=== PATIENT | female | born 1980 | race Two or more races ===

== ENCOUNTER 2024-01-18 19:41 | Emergency (ER) | payer OTHER, SELFPAY ==
[2024-01-18 19:48] VITALS: BP 148/99; PULSE 98; RESP 18; TEMP 37; O2SAT 99; BMI 32.4
--- NOTE | 2024-01-18 19:53 | ED_ITS ---
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 This occurred proximally 30-60 minutes prior to coming to the emergency department. At the time my evaluation, the patient is very upset and is crying. She states that she was told that she had slurred speech and was having difficulty walking. She attributes her slurred speech to the fact that she had all of her lower teeth removed proximally 1.5 weeks prior and is waiting for her gums to heal before she can get dentures. She also states that [place] is her 2nd language and she believes that people were having difficulty understanding her. She states that when she was confronted she became very anxious and this made things worse. She states that she is used to working nights and that during her orientation she has been working days. She states this is her 1st shift where she was going to work the [employer]. She states that this morning at 05:00 she did take her Ambien and NyQuil which she uses for sleep. She denies using any alcohol or other drugs prior to coming to work this evening. 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 She states that this morning at 05:00 she did take her Ambien and NyQuil which she uses for sleep. She denies using any alcohol or other drugs prior to coming to work this evening. The patient states that she takes the following medications: Ambien, Chantix, Tylenol, omeprazole, Adderall, NyQuil Related Data Allergies Allergy/AdvReac Type Severity Reaction Status Date / Time No Known Allergies Allergy Verified 01/18/24 20:10 Review of Systems Review of Systems: Yes all other systems are reviewed and are negative PMFSH Past Medical History [facility] Narrative: Social history: She states that she is trying to stop smoking cigarettes and she is on Chantix in his down to 1 cigarette per day. She rarely drinks alcohol. She denies drug use. Social History Social History Advance Directives: No Advance Directives Information Provided: No Do you have a plan to hurt others: No Plan Physical Exam Vital Signs: Vital Signs: Last Vital Signs Temp 98.6 F 01/18/24 21:34 Pulse 98 01/18/24 21:34 Resp 18 01/18/24 21:34 BP 148/99 H 01/18/24 21:34 Pulse Ox 99 01/18/24 21:34 O2 Del Method Room Air 01/18/24 21:34 BMI result Body Mass Index 32.4 Exam: General: Awake, alert she is anxious, she is crying and is very upset about her situation Head: Normocephalic, atraumatic EENT: PERRL, Lids normal, sclera normal, conjunctiva normal, nose normal , ears normal, mouth/throat-patient's bottom teeth have all been removed consistent with her description of recent extractions for dentures Neck: Supple, no adenopathy Lung: breath sounds symmetric, no wheezing, rales or rhonchi Chest: symmetric movement, nontender Heart: regular rate and rhythm, normal S1, S2 no murmurs or rubs Abdomen: soft, non-tender, nondistended, normal bowel sounds Back: no vertebral tenderness, no CVAT Extremities: no deformities, moves all extremities symmetrically Neuro: General: She is awake, alert, her speech is normal, she answers all questions appropriately, she is able to repeat phrases identify objects and there was no slurred speech the time my evaluation. Cranial nerves: Cranial nerves 2-12 are intact Strength: Strength is symmetric bilaterally Cerebellar: Patient has good [id number]-ua-buzn-to-finger. Normal rapid finger movement. Normal heel to browne. Her gait is normal. 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 Patient's vital signs revealed an elevated blood pressure of 148/99-most likely secondary to stress and anxiety. Physical examination did reveal that the patient was upset, she was tearful and anxious. Her neurologic exam was nonfocal, her cerebellar exam was normal. She had good kpunxy-nd-tlmw-to-finger, normal rapid finger movement, normal heel to browne, she was able to walk without any difficulty, she was able to walk in a straight line. Differential diagnosis: ?Includes but is not limited to stroke, TIA, anxiety, alcohol intoxication, drug intoxication Following evaluation was ordered: Drug screen urine, ethanol level Course: 20:50 At the time my evaluation, the patient is very anxious and tearful secondary to her situation, her speech is not slurred, she is answering questions appropriately, cerebellar exam was normal. Patient's mouth exam did reveal that she has a dentulous in her bottom teeth consistent with her description of recent extraction and waiting for dentures. The nursing insurance sales supervisor and the insurance sales supervisor on the psychiatric service for here in the emergency department and I did discuss options with the patient. I told her that we could check a urine drug screen and an alcohol level here in the [facility] department. I told him that this would not be a chain of custody exam but would give valuable information regarding whether or not she is intoxicated her using drugs. I did tell her that she has the right to declined this test. After this discussion the patient agreed to urine drug screen and ethanol level. Based on my exam, I do not think that she is acutely intoxicated and she can drive home at this time. I will contact the patient with her results from her alcohol level in urine drug screen. 22:09 The patient's point of care glucose was normal at 115. Patient's ethanol level was below detectable limits. Patient's urine tox screen was positive for amphetamines-she is prescribed Adderall which explains this result. The rest of nurse tox screen was negative. I did speak to the patient on the phone and informed of her results. She was instructed to follow-up with [facility] for re-evaluation. Lab Data MDM Lab Attestation statement: I reviewed the patient's lab results. Labs: Lab Results 01/18/24 01/18/24 01/18/24 Range/Units 20:27 20:48 21:09 POC Glucose 115 (60-115) mg/dL Urine Opiates Screen Not Detected (Not Detect) Ur Buprenorphine Scrn Not Detected (Not Detect) ng/mL Ur Oxycodone Screen Not Detected (Not Detect) ng/mL Urine Methadone Screen Not Detected (Not Detect) ng/mL Urine Fentanyl Screen Not Detected (Not Detect) Ur Barbiturates Screen Not Detected (Not Detect) Ur Phencyclidine Scrn Not Detected (Not Detect) Ur Amphetamines Screen POSITIVE H (Not Detect) U Benzodiazepines Scrn Not Detected (Not Detect) Urine Cocaine Screen Not Detected (Not Detect) U Marijuana (THC) Screen Not Detected (Not Detect) Ethyl Alcohol < 10 mg/dL Chronic Conditions Patient?s care impacted by: Other (Anxiety) Discharge Plan Discharge Clinical Impression: Encounter for fitness for duty examination Patient Disposition: Home, Self-Care Additional Instructions: We did due and alcohol level on you and a urine drug screen. I will contact you with these results. Please follow the instructions from the nursing insurance sales supervisor for follow-up with employee health. Follow-up with your doctor in 2 days. Please return to the emergency department if your symptoms get worse or if you develop any symptoms that are concerning to you. Referrals: [facility] [Provider Group] - 3 days (Fit for duty exam) Interventions: ED Discharge Assessment Last Done: 01/18/24 21:34 Print Language: [place]
[2024-01-18 20:35] LABS: Glucose, Whole Blood 115 mg/dL (60-115)
[2024-01-18 21:13] LABS: Ethanol < 10 mg/dL
[2024-01-18 21:24] LABS: Amphetamine Screen Urine POSITIVE (Not Detect); Barbiturates, Urine Not Detected (Not Detect); Benzodiazepines Screen Urine Not Detected (Not Detect); Buprenorphine Scr Not Detected (Not Detect); Cannabinoid Screen Urine Not Detected (Not Detect); Cocaine Screen Urine Not Detected (Not Detect); Fentanyl, urine Not Detected (Not Detect); Methadone Screen, Urine Not Detected (Not Detect); Opiate Screen Urine Not Detected (Not Detect); Oxycodone Screen Urine Not Detected (Not Detect); Phencyclidine Screen Urine Not Detected (Not Detect)
[2024-01-18 21:34] VITALS: BP 148/99; PULSE 98; RESP 18; TEMP 37; O2SAT 99
--- NOTE | 2024-01-18 22:11 | MHC.EDTECH ---
This PCT witnessed PCT Sarwat draw a lab.
--- NOTE | 2024-01-18 22:23 | MHC.EDTECH ---
This PCT witnessed patient use the bathroom, I collected the urine and sent it down to lab
== END 2024-01-18 21:34 | disposition home or self-care (01) ==
PROVIDERS: Emergency Provider Emergency Medicine Emergency Medical Services
DX: Z03.89 Encounter for observation for other suspected diseases and conditions ruled out (principal); K21.9 Gastro-esophageal reflux disease without esophagitis; F90.9 Attention-deficit hyperactivity disorder, unspecified type; Z79.899 Other long term (current) drug therapy
CPT/HCPCS: 36415; 80307; 82947; 99284